=== PATIENT | male | born 1970 | race Caucasian/White ===

== ENCOUNTER 2017-05-04 15:09 | Emergency (ER) | payer OTHER ==
[~2017-05-04] VITALS: Ht 172.7 cm; Wt 68.0 kg
[2017-05-04 16:15] LABS: ABSOLUTE NEUTROPHILS 2.5 thou/uL (1.4-8.2); BASOPHILS 0.6 % (0.0-2.0); EOSINOPHILS 1.1 % (0.0-3.0); HEMATOCRIT 41.1 % (42.0-52.0); HEMOGLOBIN 13.8 gm/dL (14.0-18.0); LYMPHOCYTES 22.1 % (24.0-44.0); MCH 29.8 pg (26.0-34.0); MCHC 33.5 g/dL (28.0-37.0); MONOCYTES 9.9 % (1.0-8.0); POLYS 66.3 % (36.0-66.0); RBC 4.62 mil/uL (4.50-6.00); WBC 3.8 thou/uL (4.0-11.0)
[2017-05-04 16:22] LABS: CALCIUM 8.2 mg/dL (8.5-10.1); CREATININE 1.1 mg/dL (0.7-1.3); POTASSIUM 3.6 mmol/L (3.5-5.1)
[2017-05-04 16:26] LABS: MANUAL DIFF NO; PLATELET COUNT 86 thou/uL (150-400)
[2017-05-04 16:29] LABS: ALBUMIN 3.3 g/dL (3.4-5.0); TOTAL BILIRUBIN 0.8 mg/dL (<0.1-1.0); TOTAL PROTEIN 7.1 g/dL (6.4-8.2)
[2017-05-04] MEDS ORDERED: HYDROCODONE-AP1 EAC6 PO (16:38)
[2017-05-04] MEDS ORDERED: KEFLEX500 MG PO (16:38)
[2017-05-04 17:41] VITALS: BP 121/78
== END 2017-05-04 17:42 | disposition home or self-care (01) ==
LOC: ER 15:09
PROVIDERS: Nurse Practitioner Family
DX: S62.394A Other fracture of fourth metacarpal bone, right hand, initial encounter for closed fracture (principal); L03.113 Cellulitis of right upper limb; V29.9XXA Motorcycle rider (driver) (passenger) injured in unspecified traffic accident, initial encounter; Y93.55 Activity, bike riding; Y92.89 Other specified places as the place of occurrence of the external cause; Y99.8 Other external cause status